=== PATIENT | female | born 1945 | race Caucasian/White ===

== ENCOUNTER → 2017-02-14 | Outpatient (CLI) | payer MEDICARE, MEDICAID ==
[~2017-02-14] MED LIST: AMOXICILLIN500 MG PO; BREO ELLIPTA 11 EACH IH; CIPRO500 MG PO; CIPROFLOXACIN500 MG PO; EC NAPROSYN500 MG PO; HYDROCODONE BIT1 T11 PO; MOTRIN800 MG PO; NAPROSYN500 MG PO; NEURONTIN300 MG PO; PEN-VK500 MG PO; PYRIDIUM200 M1 PO; PYRIDIUM200 MG PO; RESTORIL15 MG PO; SPIRIVA18 MCG PO; VICODIN1 TAB PO
== END | disposition home or self-care (01) ==
LOC: RAD 15:20
DX: M79.602 Pain in left arm (principal); R20.2 Paresthesia of skin; M25.512 Pain in left shoulder; M54.2 Cervicalgia

== ENCOUNTER → 2018-02-04 | Outpatient (CLI) | payer OTHER, MEDICAID | END | disposition home or self-care (01) | LOC: US 01:00 | DX: J44.9 Chronic obstructive pulmonary disease, unspecified (principal); N39.0 Urinary tract infection, site not specified ==

== ENCOUNTER → 2018-09-19 | Outpatient (CLI) | payer OTHER, MEDICAID | END | disposition home or self-care (01) | LOC: RAD 16:19 | DX: J44.1 Chronic obstructive pulmonary disease with (acute) exacerbation (principal) ==

== ENCOUNTER 2019-09-28 12:39 | Emergency (ER) | payer OTHER, MEDICAID ==
[~2019-09-28] VITALS: Ht 162.5 cm; Wt 67.6 kg
[~2019-09-28 12:39] MED LIST changes: +AMBIEN10 M1 PO; +TRAMADOL HCL50 MG PO; +VOLTAREN50 M1 PO
[2019-09-28 13:28] LABS: BASO # 0.1 10*3/uL (0.0-0.1); BASO % 0.6 % (0.0-1.0); EOS # 0.1 10*3/uL (0.0-0.4); EOS % 1.1 % (1.0-4.0); HEMATOCRIT 36.8 % (37.0-47.0); HEMOGLOBIN 11.4 g/dl (12.0-16.0); LYMPH # 1.2 10*3/uL (1.3-4.4); LYMPH % 14.3 % (27.0-41.0); MEAN CELL VOLUME 98.7 fl (81.0-99.0); MEAN CORPUSCULAR HGB 30.6 pg (27.0-31.0); MEAN PLATELET VOLUME 9.6 fl (9.6-12.3); MONO # 0.6 10*3/uL (0.1-1.0); MONO % 7.7 % (3.0-9.0); NEUT # 6.3 10*3/uL (2.3-7.9); NEUT % 75.8 % (47.0-73.0); PLATELET COUNT AUTOMATED 384 10*3/uL (130-400); RED BLOOD COUNT 3.73 10*6/uL (4.10-5.10); RED CELL DISTRI WIDTH 12.6 % (0-14.5); WHITE BLOOD COUNT 8.3 10*3/uL (4.8-10.8)
[2019-09-28 13:41] LABS: ACT PARTIAL THROMBO TIME 27.4 SECONDS (20.0-32.1); INTERNATIONAL NORM RATIO 0.9 (2.0-3.5)
[2019-09-28 13:45] LABS: ALBUMIN 3.4 gm/dl (3.1-4.5); ALKALINE PHOSPHATASE 94 U/L (45-117); BUN 14 mg/dl (7-24); CHLORIDE 110 mmol/L (98-107); CREATININE 1.01 mg/dL (0.55-1.02); POTASSIUM 4.1 mmol/L (3.5-5.1); SGOT/AST 10 IU/L (3-35); SGPT/ALT 20 U/L (12-78); SODIUM 141 mmol/L (136-145); TOTAL PROTEIN 6.7 gm/dL (6.4-8.2)
[2019-09-28 13:47] LABS: TROPONIN I < 0.015 ng/ml (<0.045)
[2019-09-28 15:34] LABS: BILIRUBIN NEGATIVE (NEGATIVE); BLOOD NEGATIVE (NEGATIVE); CLARITY SL CLOUDY (CLEAR); COLOR YELLOW (YELLOW); GLUCOSE NEGATIVE (NEGATIVE); KETONE NEGATIVE (NEGATIVE); LEUKO ESTERASE NEGATIVE (NEGATIVE); NITRITE POSITIVE (NEGATIVE); PH 6.5 (5.0-9.0); UROBILINOGEN 0.2 E.U./dl (0.2-1.0)
[2019-09-28 15:46] LABS: BACTERIA 2+; EPITHELIAL CELLS 0-2
[2019-09-28] MEDS ORDERED: MEDROL DOSEPAK4 MG PO (16:50)
== END 2019-09-28 17:01 | disposition home or self-care (01) ==
LOC: ED 12:39
PROVIDERS: Emergency Medicine; Physician Assistant
DX: R07.81 Pleurodynia (principal); R05 Cough; R09.81 Nasal congestion; J44.9 Chronic obstructive pulmonary disease, unspecified; Z91.041 Radiographic dye allergy status; Z88.2 Allergy status to sulfonamides; Z88.1 Allergy status to other antibiotic agents; Z79.899 Other long term (current) drug therapy

== ENCOUNTER → 2019-12-03 | Outpatient (CLI) | payer OTHER, MEDICAID ==
[~2019-12-03] MED LIST changes: +MEDROL DOSEPAK4 MG PO
== END | disposition home or self-care (01) ==
LOC: US 12-01 08:30
DX: K76.0 Fatty (change of) liver, not elsewhere classified (principal); N39.0 Urinary tract infection, site not specified

== ENCOUNTER → 2020-02-19 | Outpatient (CLI) | payer OTHER, MEDICAID ==
[2020-02-19 10:36] LABS: BILIRUBIN NEGATIVE (NEGATIVE); BLOOD NEGATIVE (NEGATIVE); CLARITY CLEAR (CLEAR); COLOR YELLOW (YELLOW); GLUCOSE NEGATIVE (NEGATIVE); KETONE NEGATIVE (NEGATIVE)
[2020-02-19 10:37] LABS: LEUKO ESTERASE 2+ (NEGATIVE); NITRITE NEGATIVE (NEGATIVE); UROBILINOGEN < 0.2 E.U./dl (0.2-1.0)
[2020-02-19 10:38] LABS: RBC 0-2 rbc/hpf (0-2)
[2020-02-19 10:39] LABS: BACTERIA 3+; WBC 21-30 wbc/hpf (0-5)
[2020-02-19 10:59] LABS: ALBUMIN 3.3 gm/dl (3.1-4.5); CREATININE 1.11 mg/dL (0.55-1.02); HEMATOCRIT 47.9 % (37.0-47.0); MEAN CELL VOLUME 98.6 fl (81.0-99.0); MEAN CORPUSCULAR HGB 30.7 pg (27.0-31.0); MEAN CORPUSCULAR HGB CONC 31.1 g/dl (33.0-37.0); MEAN PLATELET VOLUME 10.3 fl (9.6-12.3); PLATELET COUNT AUTOMATED 299 10*3/uL (130-400); POTASSIUM 4.3 mmol/L (3.5-5.1); RED BLOOD COUNT 4.86 10*6/uL (4.10-5.10); RED CELL DISTRI WIDTH 12.5 % (0-14.5); TOTAL PROTEIN 6.9 gm/dL (6.4-8.2); WHITE BLOOD COUNT 5.7 10*3/uL (4.8-10.8)
[2020-02-19 11:28] LABS: ATYPICAL LYMPHS 1 % (0-0); BASOPHILS 1 % (0-1); PLATELET SUFFICIENCY NORMAL (NORMAL); TOTAL CELLS COUNTED 100 #CELLS
== END | disposition home or self-care (01) ==
LOC: LAB 09:53 → CT 10:00
PROVIDERS: Nurse Practitioner Family
DX: N39.0 Urinary tract infection, site not specified (principal); R10.9 Unspecified abdominal pain

== ENCOUNTER → 2020-04-15 | Outpatient (CLI) | payer OTHER, MEDICAID | END | disposition home or self-care (01) | LOC: COVID19 00:23 | DX: Z01.818 Encounter for other preprocedural examination (principal); Z11.59 Encounter for screening for other viral diseases ==

== ENCOUNTER → 2021-09-12 | Outpatient (CLI) | payer OTHER, MEDICAID ==
[2021-09-12 15:55] LABS: BASO # 0.1 10*3/uL (0.0-0.1); BASO % 0.6 % (0.0-1.0); EOS # 0.1 10*3/uL (0.0-0.4); EOS % 1.5 % (1.0-4.0); HEMATOCRIT 39.2 % (37.0-47.0); LYMPH # 1.9 10*3/uL (1.3-4.4); LYMPH % 20.5 % (27.0-41.0); MEAN CELL VOLUME 98.2 fl (81.0-99.0); MEAN CORPUSCULAR HGB 30.3 pg (27.0-31.0); MEAN CORPUSCULAR HGB CONC 30.9 g/dl (33.0-37.0); MEAN PLATELET VOLUME 9.8 fl (9.6-12.3); MONO % 10.7 % (3.0-9.0); NEUT % 66.3 % (47.0-73.0); PLATELET COUNT AUTOMATED 455 10*3/uL (130-400); RED BLOOD COUNT 3.99 10*6/uL (4.10-5.10); RED CELL DISTRI WIDTH 12.8 % (0-14.5); WHITE BLOOD COUNT 9.1 10*3/uL (4.8-10.8)
[2021-09-12 15:55] LABS: BILIRUBIN Negative (Negative); BLOOD Negative (Negative); CLARITY Cloudy (Clear); COLOR Yellow (Yellow); GLUCOSE Negative (Negative); KETONE Negative (Negative); LEUKO ESTERASE Trace (Negative); NITRITE Negative (Negative); PH 5.5 (4.5-8.0); UROBILINOGEN 0.2 E.U./dl (0.0-1.0)
[2021-09-12 16:13] LABS: ALBUMIN 3.4 gm/dl (3.1-4.5); ALKALINE PHOSPHATASE 92 U/L (45-117); BUN 16 mg/dl (7-24); CHLORIDE 108 mmol/L (98-107); CREATININE 1.07 mg/dL (0.55-1.02); POTASSIUM 4.3 mmol/L (3.5-5.1); SGOT/AST 20 IU/L (3-35); SGPT/ALT 24 U/L (12-78); SODIUM 139 mmol/L (136-145); TOTAL PROTEIN 7.4 gm/dL (6.4-8.2)
[2021-09-12 16:15] LABS: BACTERIA 4+
== END | disposition home or self-care (01) ==
LOC: LAB 14:26 → CT 15:00
PROVIDERS: ATTEND Urology
DX: K57.30 Diverticulosis of large intestine without perforation or abscess without bleeding (principal)

== ENCOUNTER → 2021-09-14 | Outpatient (CLI) | payer OTHER, MEDICAID | END | disposition home or self-care (01) | LOC: COVID19 16:03 | PROVIDERS: ATTEND Internal Medicine | DX: Z11.52 Encounter for screening for COVID-19 (principal) ==

== ENCOUNTER → 2023-03-11 | Outpatient (CLI) | payer OTHER, MEDICAID | END | disposition home or self-care (01) | LOC: RAD 11:36 | PROVIDERS: ATTEND Nurse Practitioner | DX: J44.9 Chronic obstructive pulmonary disease, unspecified (principal); R06.02 Shortness of breath ==

== ENCOUNTER 2024-02-07 14:14 | Emergency (ER) | payer OTHER, MEDICAID ==
[~2024-02-07] VITALS: Ht 162.5 cm; Wt 70.8 kg
[2024-02-07] MEDS ORDERED: TRAMADOL HYDRO100 MG PO (14:25)
[2024-02-07] MEDS ORDERED: ALBUTEROL SULFATE HF (14:26)
[2024-02-07] MEDS ORDERED: BREZTRI AEROS10.7 GM INH (14:26)
[2024-02-07 14:59] LABS: BASO # 0.1 10*3/uL (0.0-0.1); BASO % 0.6 % (0.0-1.0); EOS # 0.2 10*3/uL (0.0-0.4); HEMATOCRIT 38.4 % (37.0-47.0); LYMPH # 1.6 10*3/uL (1.3-4.4); LYMPH % 13.9 % (27.0-41.0); MEAN CELL VOLUME 99.2 fl (81.0-99.0); MEAN CORPUSCULAR HGB 30.7 pg (27.0-31.0); MONO % 8.3 % (3.0-9.0); NEUT # 8.6 10*3/uL (2.3-7.9); NEUT % 74.5 % (47.0-73.0); PLATELET COUNT AUTOMATED 368 10*3/uL (130-400); RED BLOOD COUNT 3.87 10*6/uL (4.10-5.10); RED CELL DISTRI WIDTH 13.6 % (0-14.5); WHITE BLOOD COUNT 11.5 10*3/uL (4.8-10.8)
[2024-02-07 15:20] LABS: ACT PARTIAL THROMBO TIME 26.5 SECONDS (20.0-32.1)
[2024-02-07 15:22] LABS: ALKALINE PHOSPHATASE 90 U/L (46-116); BUN 17 mg/dl (9-23); CHLORIDE 104 mmol/L (98-107); SGPT/ALT 15 U/L (5-49); TOTAL PROTEIN 6.6 gm/dL (6.0-8.0)
[2024-02-07] MEDS ORDERED: PREDNISONE10 MG PO (16:14)
[2024-02-07] MEDS ORDERED: AVPAK AZITHROM250 M1 PO (16:14)
== END 2024-02-07 16:33 | disposition home or self-care (01) ==
LOC: ED 14:14
PROVIDERS: Physician Assistant Medical
DX: J44.1 Chronic obstructive pulmonary disease with (acute) exacerbation (principal); Z91.041 Radiographic dye allergy status; Z88.2 Allergy status to sulfonamides; Z79.899 Other long term (current) drug therapy; Z90.711 Acquired absence of uterus with remaining cervical stump; Z98.890 Other specified postprocedural states

== ENCOUNTER → 2024-08-20 | Outpatient (CLI) | payer OTHER, MEDICAID ==
[~2024-08-20] MED LIST changes: +ALBUTEROL SULFATE HF; +ALBUTEROL2.5 MG/0.5 INH; +AVPAK AZITHROM250 M1 PO; +BREZTRI AEROS10.7 GM INH; +PREDNISONE10 MG PO; +TRAMADOL HCL100 MG PO; +TRAMADOL HYDRO100 MG PO; +VENT7GM INH; +VITAMIN D350 MCG PO; +ZITHROMAX250 MG PO
[2024-08-20 15:14] LABS: BASO # 0.1 10*3/uL (0.0-0.1); BASO % 0.6 % (0.0-1.0); EOS # 0.2 10*3/uL (0.0-0.4); EOS % 2.7 % (1.0-4.0); HEMATOCRIT 35.7 % (37.0-47.0); MEAN CELL VOLUME 98.6 fl (81.0-99.0); MEAN CORPUSCULAR HGB 30.4 pg (27.0-31.0); MEAN CORPUSCULAR HGB CONC 30.8 g/dl (33.0-37.0); MEAN PLATELET VOLUME 8.8 fl (9.6-12.3); MONO # 0.7 10*3/uL (0.1-1.0); MONO % 8.7 % (3.0-9.0); NEUT # 5.4 10*3/uL (2.3-7.9); NEUT % 68.9 % (47.0-73.0); PLATELET COUNT AUTOMATED 389 10*3/uL (130-400); RED BLOOD COUNT 3.62 10*6/uL (4.10-5.10); RED CELL DISTRI WIDTH 13.4 % (0-14.5); WHITE BLOOD COUNT 7.8 10*3/uL (4.8-10.8)
== END | disposition home or self-care (01) ==
LOC: LAB 14:33
PROVIDERS: ATTEND Internal Medicine Critical Care Medicine
DX: J44.9 Chronic obstructive pulmonary disease, unspecified (principal); R59.0 Localized enlarged lymph nodes; Z87.891 Personal history of nicotine dependence; Z80.1 Family history of malignant neoplasm of trachea, bronchus and lung; Z79.899 Other long term (current) drug therapy

== ENCOUNTER → 2024-12-01 | Outpatient (CLI) | payer OTHER, MEDICAID ==
[~2024-12-01] MED LIST changes: +AMLODIPINE BESYL5 MG PO; +MUCUS RELIEF E600 MG PO; +OMNICEF300 MG PO; +PANTOPRAZOLE SO40 MG PO
[2024-12-01 11:06] LABS: BASO % 0.1 % (0.0-1.0); EOS % 0.3 % (1.0-4.0); HEMATOCRIT 39.5 % (37.0-47.0); MEAN CELL VOLUME 97.1 fl (81.0-99.0); MEAN CORPUSCULAR HGB 29.7 pg (27.0-31.0); MEAN CORPUSCULAR HGB CONC 30.6 g/dl (33.0-37.0); MEAN PLATELET VOLUME 8.9 fl (9.6-12.3); MONO # 0.7 10*3/uL (0.1-1.0); MONO % 9.1 % (3.0-9.0); NEUT # 5.1 10*3/uL (2.3-7.9); NEUT % 70.2 % (47.0-73.0); PLATELET COUNT AUTOMATED 416 10*3/uL (130-400); RED BLOOD COUNT 4.07 10*6/uL (4.10-5.10); RED CELL DISTRI WIDTH 12.7 % (0-14.5); WHITE BLOOD COUNT 7.2 10*3/uL (4.8-10.8)
[2024-12-01 11:10] LABS: BILIRUBIN Negative (Negative); BLOOD Negative (Negative); CLARITY Clear (Clear); COLOR Yellow (Yellow); GLUCOSE Negative (Negative); KETONE Negative (Negative); LEUKO ESTERASE Negative (Negative); NITRITE Negative (Negative); PH 5.5 (4.5-8.0); UROBILINOGEN 0.2 E.U./dl (0.0-1.0)
[2024-12-01 11:27] LABS: RBC 0-2 rbc/hpf (0-2)
[2024-12-01 11:36] LABS: POTASSIUM 4.2 mmol/L (3.4-5.1)
[2024-12-01 11:55] LABS: VITAMIN D, 25-HYDROXY 45.4 ng/mL (30-100)
== END | disposition home or self-care (01) ==
LOC: LAB 10:41 → CT 11:00
PROVIDERS: Internal Medicine Nephrology; ATTEND Internal Medicine Critical Care Medicine
DX: J92.9 Pleural plaque without asbestos (principal); J43.9 Emphysema, unspecified; R91.1 Solitary pulmonary nodule; R59.0 Localized enlarged lymph nodes; J45.50 Severe persistent asthma, uncomplicated; Z99.81 Dependence on supplemental oxygen

== ENCOUNTER → 2025-03-25 | Outpatient (CLI) | payer OTHER, MEDICAID | END | disposition home or self-care (01) | LOC: CT 10:51 | PROVIDERS: ATTEND Internal Medicine Critical Care Medicine | DX: R91.1 Solitary pulmonary nodule (principal); N26.1 Atrophy of kidney (terminal); I25.10 Atherosclerotic heart disease of native coronary artery without angina pectoris ==

== ENCOUNTER → 2025-05-11 | Outpatient (CLI) | payer OTHER, MEDICAID | LOC: RAD 13:30 | PROVIDERS: ATTEND Physician Assistant | DX: M47.816 Spondylosis without myelopathy or radiculopathy, lumbar region (principal); M48.07 Spinal stenosis, lumbosacral region; M51.26 Other intervertebral disc displacement, lumbar region; M51.369 Other intervertebral disc degeneration, lumbar region without mention of lumbar back pain or lower extremity pain ==